=== PATIENT | female | born 1940 | race Hispanic/Latino ===

== ENCOUNTER 2020-08-25 20:43 | Emergency (ER) | payer MEDICARE ==
--- NOTE | 2020-08-25 22:51 | XRay Report ---
XR pelvis 1-2V INDICATION: fall leg pain. COMPARISON: No relevant prior imaging study available. FINDINGS: No acute skeletal abnormality. No significant soft tissue abnormality. There is mild subjective osteopenia. Advanced osteoarthrosis is noted at the right hip. There is lumb ar spondylosis. Left hip arthroplasty has a satisfactory appearance. Sacrum is largely obscured by alejandro wel gas. IMPRESSION: 1. No acute, displaced fracture is identified. Signer Name: Layton Garcia MD Signed: 08/25/2020 10:46 PM Workstation Name: [id number]
--- NOTE | 2020-08-25 22:54 | XRay Report ---
CHEST PA AND LATERAL VIEWS INDICATION: fall rib pain. COMPARISON: None. FINDINGS: Support devices: None. Heart: Within normal limits. Lungs/Pleura: There are low lung volumes with mild atelectatic changes in the bases. No pulmonary con tusion or hemopneumothorax. Chronic compression deformity is seen at the thoracolumbar junction. There appears to be a minimally displaced lateral right lower rib fracture. IMPRESSION: 1. No acute pulmonary or pleural findings. 2. Minimally displaced lateral right ninth rib fracture. Signer Name: Layton Garcia MD Signed: 08/25/2020 10:49 PM Workstation Name: [id number]
--- NOTE | 2020-08-25 23:19 | Cat Scan Report ---
CT LUMBAR SPINE WITHOUT CONTRAST INDICATION: fall back pain. TECHNIQUE: Axial CT images of the spine were obtained. Sagittal and coronal reformatted images were produced. Al l CT scans at this location are performed using CT dose reduction for ALARA by means of automated exp osure control. COMPARISON: None available. FINDINGS: ACUTE FRACTURE(S) OR SUBLUXATION: None. There is mild sclerosis in the right sacral alar which may be due to prior sacral alar fracture. SPINAL DEGENERATIVE CHANGES: There is scoliosis, mild. Advanced diffuse discogenic and facet degenera tive changes noted. There is spinal canal narrowing due to discogenic and facet arthropathy at the le dmitriy of L4. There is neural foraminal narrowing bilaterally at this level. PARASPINAL SOFT TISSUES: No soft tissue swelling or other acute abnormalities. ADDITIONAL FINDINGS: No significant additional findings. IMPRESSION: 1. No acute fracture or subluxation in the spine in neutral position. Signer Name: Layton Garcia MD Signed: 08/25/2020 11:14 PM Workstation Name: [id number]
--- NOTE | 2020-08-25 23:23 | Cat Scan Report ---
CT CERVICAL SPINE WITHOUT CONTRAST INDICATION: fall onto side, de acceleration component. TECHNIQUE: Axial CT images of the spine were obtained. Sagittal and coronal reformatted images were produced. Al l CT scans at this location are performed using CT dose reduction for ALARA by means of automated exp osure control. COMPARISON: None available. FINDINGS: ACUTE FRACTURE(S) OR SUBLUXATION: None. SPINAL DEGENERATIVE CHANGES: There is mild to moderate mid cervical discogenic degenerative change. M id to lower lumbar moderate facet arthropathy is noted. PARASPINAL SOFT TISSUES: No soft tissue swelling or other acute abnormalities. ADDITIONAL FINDINGS: No significant additional findings. IMPRESSION: 1. No acute fracture or subluxation in the spine in neutral position. Signer Name: Layton Garcia MD Signed: 08/25/2020 11:18 PM Workstation Name: [id number]
--- NOTE | 2020-08-25 23:35 | Cat Scan Report ---
CT HEAD WITHOUT CONTRAST INDICATION: fall onto side, de acceleration component. TECHNIQUE: All CT scans at this location are performed using CT dose reduction for ALARA by means of automated e xposure control. COMPARISON: None available. FINDINGS: HEMORRHAGE: None. EXTRA-AXIAL SPACES: Normal in size and morphology for the patient's age. VENTRICULAR SYSTEM: Normal in size and morphology for the patient's age. BRAIN PARENCHYMA: No acute findings. Mild periventricular white matter hypodensities are likely micro angiopathic in etiology. MIDLINE SHIFT OR HERNIATION: None. ORBITS: Normal as visualized. SOFT TISSUES OF HEAD: Normal. CALVARIUM: Normal. VISUALIZED PARANASAL SINUSES AND MASTOID AIR CELLS: Clear. ADDITIONAL FINDINGS: None. IMPRESSION: 1. No acute intracranial abnormality. Signer Name: Layton Garcia MD Signed: 08/25/2020 11:30 PM Workstation Name: [id number]
--- NOTE | 2020-08-25 23:40 | Emergency Department Report ---
HPI - General Chief Complaint: Fall Time Seen by Provider: 08/25/20 23:05 - HPI HPI: This is a 80-year-old female who presents to the emergency department from home with complaint of having a fall while trying to sit down in a chair. The patient walks with a walker and says that her ankle twisted when she was turning around to sit down in the chair and she fell onto her right side. Her right rib cage made contact with the wooden armrest of the chair and the patient says that "I heard a crack but I did not know if it was the chair or my ribs." She denies hitting her head or any loss of consciousness. Patient has a history of spinal stenosis and "an autoimmune disorder." She did not take anything for her symptoms prior to presentation. Patient does admit to having some low back pain but says that this is chronic secondary to her spinal stenosis and unchanged after the fall. She denies any numbness or paresthesias. She did not take anything for symptoms prior to presentation. ED Past Medical Hx - Past Medical History Previous Medical History?: Yes Hx Arthritis: Yes Additional medical history: spinal stenosis, MS, Autoimmune disorder, - Surgical History Past Surgical History?: Yes Additional Surgical History: left Hip replacement - Social History Smoking Status: Never Smoker Substance Use Type: None ED Review of Systems ROS: Stated complaint: FALL Other details as noted in HPI Comment: All other systems reviewed and negative Constitutional: denies: chills, fever Eyes: denies: eye pain, vision change ENT: denies: ear pain, throat pain Respiratory: denies: cough, shortness of breath Cardiovascular: chest pain (Right rib cage.). denies: palpitations Gastrointestinal: denies: abdominal pain, vomiting Genitourinary: denies: dysuria, discharge Musculoskeletal: denies: back pain, arthralgia Skin: denies: rash, lesions Neurological: denies: headache, weakness Physical Exam - Physical Exam Vital Signs: Vital Signs 08/25/20 21:38 Temperature 98.0 F Pulse Rate 75 Respiratory 20 Rate Blood Pressure 149/84 O2 Sat by Pulse 99 Oximetry Physical Exam: GENERAL: The patient is well-developed well-nourished. HENT: Normocephalic. Atraumatic. Patient has moist mucous membranes. EYES: Extraocular motions are intact. NECK: Supple. Trachea is midline. No tenderness palpation to the posterior neck and/or cervical spine. CHEST/LUNGS: Clear to auscultation. There is no respiratory distress noted. There is some reproducible tenderness to palpation along the right lateral lower rib cage, but no crepitus or deformity. HEART/CARDIOVASCULAR: Regular. There is no tachycardia. There is no murmur. ABDOMEN: Abdomen is soft, nontender. Patient has normal bowel sounds. SKIN: Skin is warm and dry. NEURO: The patient is awake, alert, and oriented. The patient is cooperative. Normal speech. Cranial nerves II through XII grossly intact. MUSCULOSKELETAL: There is no tenderness or deformity. No tenderness to palpation with compression of the pelvis. There is no limitation range of motion. BACK: No midline thoracic or lumbar tenderness to palpation. There is some reproducible lumbar paraspinal tenderness to palpation. ED Course Vital Signs 08/25/20 21:38 Temperature 98.0 F Pulse Rate 75 Respiratory 20 Rate Blood Pressure 149/84 O2 Sat by Pulse 99 Oximetry ED Medical Decision Making - Radiology Data Radiology results: report reviewed CT CERVICAL SPINE WITHOUT CONTRAST INDICATION: fall onto side, de acceleration component. TECHNIQUE: Axial CT images of the spine were obtained. Sagittal and coronal reformatted images were produced. All CT scans at this location are p erformed using CT dose reduction for [email or web address] by means of automated exposure control. COMPARISON: None available. FINDINGS: ACUTE FRACTURE(S) OR SUBLUXATION: None. SPINAL DEGENERATIVE CHANGES: There is mild to moderate mid cervical discogenic degenerative change. Mid to lower lumbar moderate facet arthropathy is noted. PARASPINAL SOFT TISSUES: No soft tissue swelling or other acute abnormalities. ADDITIONAL FINDINGS: No significant additional findings. IMPRESSION: 1. No acute fracture or subluxation in the spine in neutral position. XR pelvis 1-2V INDICATION: fall leg pain. COMPARISON: No relevant prior imaging study available. FINDINGS: No acute skeletal abnormality. No significant soft tissue abnormality. There is mild subjective osteopenia. Advanced osteoarthrosis is noted at the right hip. There is lumbar spondylosis. Left hip arthroplasty has a satisfactory appearance. Sacrum is largely obscured by bowel gas. IMPRESSION: 1. No acute, displaced fracture is identified. CT LUMBAR SPINE WITHOUT CONTRAST INDICATION: fall back pain. TECHNIQUE: Axial CT images of the spine were obtained. Sagittal and coronal reformatted images were produced. All CT scans at this location are performed using CT dose reduction for ALARA by means of automated exposure control. COMPARISON: None available. FINDINGS: ACUTE FRACTURE(S) OR SUBLUXATION: None. There is mild sclerosis in the right sacral alar which may be due to prior sacral alar fracture. SPINAL DEGENERATIVE CHANGES: There is scoliosis, mild. Advanced diffuse discogenic and facet degenerative changes noted. There is spinal canal narrowing due to discogenic and facet arthropathy at the level of L4. There is neural foraminal narrowing bilaterally at this level. PARASPINAL SOFT TISSUES: No soft tissue swelling or other acute abnormalities. ADDITIONAL FINDINGS: No significant additional findings. IMPRESSION: 1. No acute fracture or subluxation in the spine in neutral position. CHEST PA AND LATERAL VIEWS INDICATION: fall rib pain. COMPARISON: None. FINDINGS: Support devices: None. Heart: Within normal limits. Lungs/Pleura: There are low lung volumes with mild atelectatic changes in the bases. No pulmonary contusion or hemopneumothorax. Chronic compression deformity is seen at the thoracolumbar junction. There appears to be a minimally displaced lateral right lower rib fracture. IMPRESSION: 1. No acute pulmonary or pleural findings. 2. Minimally displaced lateral right ninth rib fracture. CT HEAD WITHOUT CONTRAST INDICATION: fall onto side, de acceleration component. TECHNIQUE: All CT scans at this location are performed using CT dose reduction for ALARA by means of automated exposure control. COMPARISON: None available. FINDINGS: HEMORRHAGE: None. EXTRA-AXIAL SPACES: Normal in size and morphology for the patient's age. VENTRICULAR SYSTEM: Normal in size and morphology for the patient's age. BRAIN PARENCHYMA: No acute findings. Mild periventricular white matter hypodensities are likely microangiopathic in etiology. MIDLINE SHIFT OR HERNIATION: None. ORBITS: Normal as visualized. SOFT TISSUES OF HEAD: Normal. CALVARIUM: Normal. VISUALIZED PARANASAL SINUSES AND MASTOID AIR CELLS: Clear. ADDITIONAL FINDINGS: None. IMPRESSION: 1. No acute intracranial abnormality. - Medical Decision Making This patient had a fall when she was trying to turn around and sit down in a chair after walking around with her walker at home. Somehow her foot got caught on something and her ankle rolled and the patient fell onto her right side hitting the rib cage on the armrest of the chair. She denies hitting her head or any loss of consciousness. Patient's main complaint is the right-sided rib pain. She has some chronic low back pain secondary to her spinal stenosis. She denies any numbness or paresthesias, problems with bowel or bladder. The pat ient had a CT scan of the head, cervical spine, and lumbar spine, all without contrast, that was ordered in triage but did not show any resulting acute processes. An x-ray of the pelvis was done that does not show any fracture, dislocation, or any acute process. X-ray of the chest shows a mildly displaced right-sided ninth rib fracture. No pneumothorax, pleural effusions or pneumonia. Patient was given a tramadol for analgesia. The patient was able to stand and bear weight with some assistance. Vital signs reassuring throughout her ED course. Patient be discharged home to follow-up with her primary care physician. She is also been given a referral for an orthopedist regarding the rib fracture. We discussed incentive spirometry which she will do by taking 10 full breaths each hour while awake. Patient has good follow-up with primary care and a PMNR physician. She has pain medication at home. She will return to the emergency department with any worsening of her symptoms or with any acute distress. Critical Care Time: No Critical care attestation.: If time is entered above; I have spent that time in minutes in the direct care of this critically ill patient, excluding procedure time. ED Disposition Clinical Impression: Rib pain on right side Fall Qualifiers: Encounter type: initial encounter Qualified Code(s): W19.XXXA - Unspecified fall, initial encounter Rib fracture Qualifiers: Encounter type: initial encounter Rib fracture type: single rib Fracture type: closed Laterality: right Qualified Code(s): S22.31XA - Fracture of one rib, right side, initial encounter for closed fracture Chronic back pain Qualifiers: Back pain location: low back pain Back pain laterality: unspecified Sciatica presence: without sciatica Qualified Code(s): M54.5 - Low back pain; G89.29 - Other chronic pain Disposition: DC-01 TO HOME OR SELFCARE Is pt being admited?: No Condition: Stable Instructions: Rib Fracture (ED), Fall Prevention for Older Adults (ED) Additional Instructions: Please follow-up with a primary care physician in the next few days. I have also given you a referral for a local orthopedist, Dr. Pereyra, to follow- up regarding your rib fracture. Due to the pain of a rib fracture, sometimes patients have a tendency to take more shallow breaths due to the pain. Doing so can lead to the development of pneumonia. Therefore, please make sure that you take at least 10 full breaths every hour while awake. Return to the emergency department with any worsening of your symptoms, new or concerning symptoms not addressed during this current emergency department visit, or with any acute distress. Referrals: PRIMARY CAREMD [Primary Care Provider] - 2-3 Days RODRIGO PEREYRA MD [Staff Physician] - 2-3 Days Time of Disposition: 23:50
[2020-08-25] MEDS ORDERED: traMADol 50 MG TAB PO ONE (23:52)
[2020-08-26 00:33] VITALS: BP 165/79
== END 2020-08-26 00:20 | disposition home or self-care (01) ==
LOC: ED 20:43
DX: S22.39XA Fracture of one rib, unspecified side, initial encounter for closed fracture (principal); M54.9 Dorsalgia, unspecified; G89.29 Other chronic pain; M19.90 Unspecified osteoarthritis, unspecified site; Z98.890 Other specified postprocedural states; Z88.2 Allergy status to sulfonamides; Z88.0 Allergy status to penicillin; W17.89XA Other fall from one level to another, initial encounter; Y93.89 Activity, other specified; Y92.098 Other place in other non-institutional residence as the place of occurrence of the external cause; Y99.8 Other external cause status
CPT/HCPCS: 70450; 71046; 72125; 72131; 72170